=== PATIENT | female | born 1970 | race Caucasian/White ===

== ENCOUNTER 2021-02-19 08:29 | Day surgery (SDC) | payer BC ==
[2021-02-16 12:37] VITALS: BMI 28.3
[2021-02-19] MEDS ORDERED: Lidocaine 1% MPF 2 ML VIAL ONE (08:54)
[2021-02-19] MEDS ORDERED: PROPOFOL 20 ML ONE (12:12)
[2021-02-19] MEDS ORDERED: PROPOFOL 60 ML ONE (12:12)
[2021-02-19] MEDS ORDERED: Fentanyl 100 MCG/2 ML VIAL ONE ×2 (12:13→14:04)
[2021-02-19] MEDS ORDERED: Ondansetron PF 4 MG/2 ML Vial ONE (12:13)
[2021-02-19] MEDS ORDERED: Midazolam HCl 2 mg/2 ml Vial ONE (12:13)
[2021-02-19] MEDS ORDERED: Glycopyrrolate 0.2 MG/ML 5 ML SYRINGE ONE (12:13)
[2021-02-19] MEDS ORDERED: Dexamethasone 20 MG/5 ML VIAL ONE (12:13)
[2021-02-19] MEDS ORDERED: Lidocaine 1% PF 5 ML VIAL ONE (12:31)
[2021-02-19] MEDS ORDERED: EPINEPHrine 1 MG/ML AMP ONE (12:53)
[2021-02-19] MEDS ORDERED: Triamcinolone 40 MG/ML VIAL ONE (12:58)
[2021-02-19] MEDS ORDERED: HYDROcodone/Acetaminophen 10/325 mg Tablet ONE (14:42)
== END 2021-02-19 15:15 | disposition home or self-care (01) ==
LOC: CSHSDC 08:29
PROVIDERS: ATTEND Otolaryngology Plastic Surgery within the Head & Neck
PROC: 0C5R8ZZ Destruction of Epiglottis, Via Natural or Artificial Opening Endoscopic (ICD-10-PCS; principal; 2021-02-19)
PROC: 0C7S8ZZ Dilation of Larynx, Via Natural or Artificial Opening Endoscopic (ICD-10-PCS; principal; 2021-02-19)
DX: J38.6 Stenosis of larynx (principal); R04.0 Epistaxis
CPT/HCPCS: J0171; J1100; J2250; J2405; J2704; J3010; J3301

== ENCOUNTER 2022-07-01 10:51 | Day surgery (SDC) | payer OTHER, SELFPAY ==
[2022-06-28 12:14] VITALS: BMI 26.5
[2022-07-01] MEDS ORDERED: Ketamine 50 MG/ML (10ML VIAL) ONE (12:10)
[2022-07-01] MEDS ORDERED: Lidocaine 4% PF 5 ML AMP ONE (12:11)
[2022-07-01] MEDS ORDERED: Propofol 1,000 MG/100 ML VIAL IV ONE (12:11)
[2022-07-01] MEDS ORDERED: Triamcinolone 40 MG/ML VIAL ONE (12:13)
[2022-07-01] MEDS ORDERED: Esmolol 100 MG/10 ML VIAL ONE (12:47)
[2022-07-01] MEDS ORDERED: Ondansetron PF 4 MG/2 ML Vial ONE (12:47)
[2022-07-01] MEDS ORDERED: Fentanyl 100 MCG/2 ML VIAL ONE ×3 (12:47→14:12)
[2022-07-01] MEDS ORDERED: Dexamethasone 20 MG/5 ML VIAL ONE (12:47)
[2022-07-01] MEDS ORDERED: Oxymetazoline HCl 0.05% ( 15 ML ) ONE (12:48)
[2022-07-01] MEDS ORDERED: Glycopyrrolate 0.2 MG/ML 5 ML SYRINGE ONE (12:48)
[2022-07-01] MEDS ORDERED: Midazolam HCl 2 mg/2 ml Vial ONE (12:55)
[2022-07-01] MEDS ORDERED: EPINEPHrine 1 MG/ML AMP ONE (13:28)
[2022-07-01] MEDS ORDERED: Hydrocodone-Acetamin 15 ML UDCUP ONE (14:50)
== END 2022-07-01 15:35 | disposition home or self-care (01) ==
LOC: CSHSDC 10:51
PROVIDERS: ATTEND Otolaryngology Plastic Surgery within the Head & Neck
PROC: 0B718ZZ Dilation of Trachea, Via Natural or Artificial Opening Endoscopic (ICD-10-PCS; principal; 2022-07-01)
PROC: 3E0F83Z Introduction of Anti-inflammatory into Respiratory Tract, Via Natural or Artificial Opening Endoscopic (ICD-10-PCS; principal; 2022-07-01)
DX: J38.6 Stenosis of larynx (principal); Z91.013 Allergy to seafood; Z79.899 Other long term (current) drug therapy
CPT/HCPCS: C1726; J0171; J1100; J2250; J2405; J2704; J3010; J3301

== ENCOUNTER 2023-05-22 06:38 | Day surgery (SDC) | payer OTHER ==
[2023-05-21 11:05] VITALS: BMI 27.4
[2023-05-22] MEDS ORDERED: Dexamethasone 20 MG/5 ML VIAL ONE (09:16)
[2023-05-22] MEDS ORDERED: Rocuronium Bromide 10 MG/ML (10ML VIAL) ONE (09:16)
[2023-05-22] MEDS ORDERED: Midazolam HCl 2 mg/2 ml Vial ONE (09:16)
[2023-05-22] MEDS ORDERED: SUGAMMADEX SODIUM 200 MG/2 ML VIAL ONE (09:16)
[2023-05-22] MEDS ORDERED: PROPOFOL 80 ML ONE (09:16)
[2023-05-22] MEDS ORDERED: Ondansetron PF 4 MG/2 ML Vial ONE (09:16)
[2023-05-22] MEDS ORDERED: fentaNYL 50 mcg/mL 1 mL Vial ONE ×2 (09:17→10:24)
[2023-05-22] MEDS ORDERED: EPINEPHrine 1 MG/ML VIAL ONE (09:36)
[2023-05-22] MEDS ORDERED: Triamcinolone 40 MG/ML VIAL ONE ×2 (09:36→10:36)
[2023-05-22] MEDS ORDERED: PROPOFOL 20 ML ONE (10:33)
[2023-05-22] MEDS ORDERED: Hydrocodone-Acetamin 15 ML UDCUP ONE (11:48)
== END 2023-05-22 12:25 | disposition home or self-care (01) ==
LOC: CSHSDC 06:38
PROVIDERS: ATTEND Otolaryngology Plastic Surgery within the Head & Neck
PROC: 0C7S8ZZ Dilation of Larynx, Via Natural or Artificial Opening Endoscopic (ICD-10-PCS; principal; 2023-05-22)
PROC: 0CBS8ZX Excision of Larynx, Via Natural or Artificial Opening Endoscopic, Diagnostic (ICD-10-PCS; principal; 2023-05-22)
DX: J38.6 Stenosis of larynx (principal); Z91.013 Allergy to seafood
CPT/HCPCS: 88305; 88313; C1726; J0171; J1100; J2250; J2405; J2704; J3010; J3301

== ENCOUNTER 2023-10-09 08:31 | Day surgery (SDC) | payer OTHER, SELFPAY ==
[2023-10-08 09:15] VITALS: BMI 25.7
[2023-10-09 09:07] LABS: Hematocrit 36.2 % (34.9-44.5); Hemoglobin 12.5 g/dL (12.0-15.5)
[2023-10-09 09:22] LABS: BHCG - Serum Negative (NEGATIVE); Pregs Control Background? CLEAR/WHITE (CLR/WHITE); Pregs Control Bar Appear? YES (CONTROL BAR)
[2023-10-09] MEDS ORDERED: EPINEPHrine 1 MG/ML VIAL ONE (09:43)
[2023-10-09] MEDS ORDERED: Ondansetron PF 4 MG/2 ML Vial ONE (09:51)
[2023-10-09] MEDS ORDERED: fentaNYL 50 mcg/mL 1 mL Vial ONE ×3 (09:51→11:49)
[2023-10-09] MEDS ORDERED: Dexamethasone 20 MG/5 ML VIAL ONE (09:51)
[2023-10-09] MEDS ORDERED: Midazolam HCl 2 mg/2 ml Vial ONE (09:51)
[2023-10-09] MEDS ORDERED: Lidocaine 1% PF 5 ML VIAL ONE (09:51)
[2023-10-09] MEDS ORDERED: PROPOFOL 20 ML ONE ×3 (09:51→11:04)
[2023-10-09] MEDS ORDERED: Triamcinolone 40 MG/ML VIAL ONE (10:40)
[2023-10-09] MEDS ORDERED: Ketorolac Tromethamine 30 MG (1 mL) VIAL ONE (11:50)
== END 2023-10-09 13:10 | disposition home or self-care (01) ==
LOC: CSHSDC 08:31
PROVIDERS: ATTEND Otolaryngology Plastic Surgery within the Head & Neck
PROC: 3E0F83Z Introduction of Anti-inflammatory into Respiratory Tract, Via Natural or Artificial Opening Endoscopic (ICD-10-PCS; principal; 2023-10-09)
PROC: 0C7S8ZZ Dilation of Larynx, Via Natural or Artificial Opening Endoscopic (ICD-10-PCS; principal; 2023-10-09)
PROC: 0C5S8ZZ Destruction of Larynx, Via Natural or Artificial Opening Endoscopic (ICD-10-PCS; principal; 2023-10-09)
DX: J38.6 Stenosis of larynx (principal); J38.2 Nodules of vocal cords; R49.0 Dysphonia; Z91.013 Allergy to seafood
CPT/HCPCS: 36415; 84703; 85014; 85018; 93005; 93010; C1726; J0171; J1100; J1885; J2250; J2405; J2704; J3010; J3301